=== PATIENT | female | born 1965 | race Caucasian/White ===

== ENCOUNTER 2016-11-01 17:47 | Emergency (ER) | payer BC ==
[2016-11-01 17:54] VITALS: BP 98/58
--- NOTE | 2016-11-01 18:26 | UC ---
Lower Extremity/Ankle HPI - HPI Summary HPI Summary: This is an otherwise healthy 51 yo female who presents with c/o R ankle pain following an inversion injury earlier today. Patient was hiking today when she twisted her ankle twice. She then finished the hike with severe pain and drove herself here. She has taken 600 ibuprofen before arrival. No additional injury. She felt a little faint after the second injury. - History of Current Complaint Chief Complaint: UCLowerExtremity Stated Complaint: ANKLE INJURY - Allergies/Home Medications Allergies/Adverse Reactions: Allergies Allergy/AdvReac Type Severity Reaction Status Date / Time No Known Allergies Allergy Verified 11/01/16 17:54 PMH/Surg Hx/FS Hx/Imm Hx Previously Healthy: Yes - Surgical History Surgical History: Yes Surgery Procedure, Year, and Place: c section - Family History Known Family History: Positive: None - Social History Alcohol Use: Rare Alcohol Amount: HOLIDAYS Substance Use Type: None Smoking Status (MU): Never Smoked Tobacco Have You Smoked in the Last Year: No Household Exposure Type: Cigarettes Review of Systems Constitutional: Negative Skin: Negative Eyes: Negative ENT: Negative Respiratory: Negative Cardiovascular: Negative Gastrointestinal: Negative Genitourinary: Negative Motor: Decreased ROM Musculoskeletal: Arthralgia, Decreased ROM Neurological: Negative Psychological: Negative Is Patient Immunocompromised?: No All Other Systems Reviewed And Are Negative: Yes Physical Exam Triage Information Reviewed: Yes Appearance: Pain Distress - mild Vital Signs: Initial Vital Signs Temp 98.5 F 11/01/16 17:49 Pulse 75 11/01/16 17:49 Resp 18 11/01/16 17:49 BP 98/58 11/01/16 17:49 Pulse Ox 100 11/01/16 17:49 Vital Signs Reviewed: Yes ENT Exam: Normal ENT: Positive: Hearing grossly normal Neck: Positive: Supple, Nontender Respiratory: Positive: Chest non-tender, Lungs clear. Negative: Crackles, Rhonchi, Wheezing Cardiovascular: Positive: RRR, No Murmur Musculoskeletal: Positive: Other: - severe edema at the R lateral malleolus with associated TTP Neurological: Positive: Alert, Muscle Tone Normal Psychological Exam: Normal Psychological: Positive: Normal Response To Family Skin Exam: Normal Skin: Negative: rashes Diagnostics - Laboratory Diagnostic Studies Completed/Ordered: XR ankle - no fracture, soft tissue swelling Lower Extremity Course/Dx - Course Course Of Treatment: This is an otherwise healthy 51 yo female who sustained a R ankle injury earlier today. No fx on XR. WRapped in an KEIKO wrap and placed in an ankle stirrup brace. Patient given instructions to be NWB x 24-48 hrs - Differential Dx/Diagnosis Differential Diagnosis/HQI/PQRI: Dislocation, Fracture (Closed), Sprain, Strain Provider Diagnoses: 1. R ankle sprain Discharge - Discharge Plan Condition: Stable Disposition: HOME Patient Education Materials: Ankle Sprain (ED) Referrals: Chloe Khan MD [Primary Care Provider] - If Needed Additional Instructions: Instructions: 1. Keep ankle wrapped to provide compression and support 2. Use brace when up and around 3. Use crutches and do not bear weight for 24-48 hrs 4. Start light range of motion exercises after 24 hours 5. Apply ice frequently and use 600-800 mg ibuprofen three times daily 6. Follow up with your PCP if pain and instability persist for a referral to physical therapy
--- NOTE | 2016-11-01 18:40 | RAD ---
INDICATION: Right ankle pain COMPARISON: None TECHNIQUE: AP, lateral, and oblique views were obtained. FINDINGS: There is mild lateral soft tissue swelling. There is no acute fracture. The ankle mortise is intact. IMPRESSION: LATERAL SOFT TISSUE SWELLING.
== END 2016-11-01 19:03 | disposition home or self-care (01) ==
LOC: UCEAST 17:47
DX: S93.401A Sprain of unspecified ligament of right ankle, initial encounter (principal); X50.1XXA Overexertion from prolonged static or awkward postures, initial encounter; Y93.01 Activity, walking, marching and hiking; Y92.9 Unspecified place or not applicable; Z77.22 Contact with and (suspected) exposure to environmental tobacco smoke (acute) (chronic)
CPT/HCPCS: 99212; G0463

== ENCOUNTER 2017-03-15 10:23 | Day surgery (SDC) | payer BC ==
[~2017-03-15 10:23] MED LIST: Buffered Lidocaine 0.9% SYRIN* 5 ML/SYR SYRINGE INTRADERM ONE; Dexamethasone IV* 4 MG/ML 1 ML (4 MG) IV SLOW PU ONE; Famotidine IV* 10 MG/ML 2 ML (20 mg) IV ONE; Midazolam* 1 MG/ML 2 ML VIAL (2 MG) ONE; fentaNYL* 50 MCG/ML 2 ML VIAL (100 MCG VIAL) ONE
[2017-03-15] MEDS ORDERED: Famotidine IV* 10 MG/ML 2 ML (20 mg) ONE (10:28)
[2017-03-15] MEDS ORDERED: ceFAZolin 2 GM PREMIX (*) 2 GM/50 ML BAG IVPB ONE (10:28)
[2017-03-15] MEDS ORDERED: Dexamethasone IV* 4 MG/ML 1 ML (4 MG) ONE (10:28)
[2017-03-15] MEDS ORDERED: Ketorolac INJ* 30 MG/ML 1 ML VIAL ONE (11:25)
[2017-03-15] MEDS ORDERED: Ondansetron INJ* 2 MG/ML VIAL ONE (11:25)
[2017-03-15] MEDS ORDERED: Propofol* 10 MG/ML 20 ML BTL IV PUSH ONE (11:25)
[2017-03-15] MEDS ORDERED: Ferric Subsulfate* 8 ML BTL ONE (11:33)
[2017-03-15] MEDS ORDERED: Ibuprofen TAB* 600 MG PO PRN (11:48)
[2017-03-15] MEDS ORDERED: oxyCODONE/Acetamin 5/325 MG* TAB PO PRN (11:48)
[2017-03-15] MEDS ORDERED: Naloxone* 0.4 MG/ML 1 ML VIAL IV PRN (12:00)
[2017-03-15] MEDS ORDERED: fentaNYL* 50 MCG/ML 2 ML VIAL (100 MCG VIAL) IV PRN (12:00)
[2017-03-15] MEDS ORDERED: DiMENhydriNATE IV* 50 MG/ML VIAL IV PUSH PRN (12:00)
[2017-03-15] MEDS ORDERED: Ibuprofen TAB* 600 MG ONE (12:09)
[2017-03-15 13:44] VITALS: BP 97/61
--- NOTE | 2017-03-15 23:45 | OP ---
DATE OF OPERATION: 03/15/17 [facility] DATE OF : 61 SURGEON: Erasmo Partida MD ANESTHESIOLOGIST: Dr. Castañeda ANESTHESIA: General endotracheal anesthesia. PRE-OP DIAGNOSES: Large cervical polyp and irregular menses. POST-OP DIAGNOSES: Large cervical polyp and irregular menses. OPERATIVE PROCEDURE: Exam under anesthesia, dilation, hysteroscopy, curettage, polypectomy. FINDINGS: Anteverted uterus, midline cervix with a large 3-cm in its widest dimension by approximately 2 to 3 cm in length, friable endocervical polyp arising from the posterior endocervix. The endometrium appeared atrophic throughout. Both ostia were visualized. ESTIMATED BLOOD LOSS: Less than 20 cc. SPECIMENS: Endocervical polyp and endometrial curettings. FLUIDS: Per Anesthesia. COMPLICATIONS: None. COUNTS: Sponge, lap, and needle count were correct x2. CONDITION: The patient tolerated the procedure well and was brought to recovery room awake and in stable condition. DESCRIPTION OF PROCEDURE: The patient was brought to the operating room. When general anesthesia was found to be adequate, the patient was prepped and draped in the usual sterile fashion in the dorsal lithotomy position. Time-out was performed. Exam under anesthesia was performed. Weighted speculum was placed in the vagina and the anterior loop of the cervix was grasped with a single- tooth tenaculum. Cervix was gently and easily dilated with graduated Hegar dilators. A hysteroscope was introduced. The endometrium was visualized throughout. Both ostia were visualized. The hysteroscope was removed. The endocervical polyp was grasped with polyp forceps, twisted multiple times and removed in 2 sections. Endocervical curettage was performed to remove any tissue from the base of the polyp and that was sent as one specimen to pathology. Endometrial curettage was then performed and that specimen was sent to pathology. Hemostasis was achieved at the tenaculum site with pressure from the polyp forceps for approximately 2 minutes. Excellent hemostasis was noted. Monsel solution was placed in the area of the endocervical polyp and excellent hemostasis was noted at that site. The patient tolerated the procedure well. Sponge, lap, and needle count were correct x2 and the patient was brought to the recovery room awake and in stable condition. [id number]/[facility] #: [id number]
== END 2017-03-15 14:00 | disposition home or self-care (01) ==
LOC: OR 10:23
PROVIDERS: ATTEND Obstetrics & Gynecology
DX: N84.0 Polyp of corpus uteri (principal); N84.1 Polyp of cervix uteri; N92.6 Irregular menstruation, unspecified; E04.2 Nontoxic multinodular goiter; Z86.718 Personal history of other venous thrombosis and embolism
CPT/HCPCS: 88305; A9270-GY; J0690; J1100; J1885; J2250; J2405; J2704; J3010